=== PATIENT | male | born 1990 | race Caucasian/White ===

== ENCOUNTER 2017-03-02 22:32 | Emergency (ER) | payer MEDICAID ==
--- NOTE | 2017-03-02 22:37 | EDPHY ---
H & P HPI/ROS: HPI CHIEF COMPLAINT: Medical clearance for long term, alcohol intoxication HISTORY OF PRESENT ILLNESS: The patient is a 26-year-old male, unknown medical history unknown surgical history he presents emergency room by EMS. [place]. Highly intoxicated alcohol. Denies unsteady gait. Brought to the emergency room because he would not speak to the police or EMS. However he did speak in short sentences to EMS in route and was slurring his speech. Admits to large amount of alcohol this evening. EMS reports heart rates in the 120s. Of note the police would like to take this patient to long term as he has a warrant for his arrest. Upon arrival to the emergency room the patient will not speak to me does not answer any of my questions. Past Medical History: Unknown medical history Past Surgical History: Unknown surgical history Social History: Alcohol this evening, unknown drug use Family History: Unknown ROS REVIEW OF SYSTEMS: Review of systems and history limited due to patient's cooperation and alcohol intoxication Exam Constitutional intoxicated with alcohol, smells of alcohol, triage nursing summary reviewed, vital signs reviewed, awake/alert. Eyes normal conjunctivae and sclera, EOMI, PERRLA. HENT normal inspection, atraumatic, moist mucus membranes, no epistaxis, neck supple/ no meningismus, no raccoon eyes. Respiratory clear to auscultation bilaterally, normal breath sounds, no respiratory distress, no wheezing. Cardiovascular rate normal, regular rhythm, no murmur, no edema, distal pulses normal. Gastrointestinal soft, non-tender, no rebound, no guarding, normal bowel sounds, no distension, no pulsatile mass. Genitourinary no CVA tenderness. Musculoskeletal no midline vertebral tenderness, full range of motion, no calf swelling, no tenderness of extremities, no meningismus, good pulses, neurovascularly intact. Skin pink, warm, & dry, no rash, skin atraumatic. Neurologic awake, alert and oriented x 3, AAOx3, moves all 4 extremities equally, motor intact, sensory intact, CN II-XII intact, normal cerebellar, normal vision, nonverbal Psychiatric normal mood/affect. Heme/Lymph/Immune no lymphadenopathy. 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 Check vital signs. Breath alcohol. Re-evaluation: 2246: Patient was revived heart rate in the 90s. Normotensive. Not hypothermic. Patient refusing to talk to me. He is in handcuffs please at bedside. He is ambulatory. There is no signs of trauma on exam. Of note patient is now answering questions with police. However he is refusing to talk to me. He otherwise appears well. Smells of alcohol. He is stable gait. He can be released to police a medically cleared for long term. He is not excessively sleepy. Sitting up in a chair with good eye tracking. However does not answer any of my questions. Source: Patient, Police, EMS - Medical/Surgical History Hx Asthma: No Hx Chronic Respiratory Disease: No Hx Diabetes: No Hx Cardiac Disease: No Hx Renal Disease: No Hx Cirrhosis: No Other PMH: Pt refuses to give any information - Social History Smoking Status: Current some day smoker Allergies/Adverse Reactions: Unable to Assess Allergy (Unverified 04/17/16 19:58) Home Medications: Medication Instructions Recorded Unobtainable 04/17/16 Departure - Departure Disposition: Home, Routine, Self-Care Clinical Impression: Alcoholic intoxication Qualifiers: Complication of substance-induced condition: uncomplicated Qualified Code(s): F10.920 - Alcohol use, unspecified with intoxication, uncomplicated Condition: Good Instructions: Alcohol Intoxication (ED) Additional Instructions: 1.Medically cleared for long term. Referrals: Patient,NotPresent [Primary Care Provider] - As per Instructions
[2017-03-02 22:52] VITALS: BP 152/94; RESP 18; TEMP 97.5; O2SAT 96
[2017-03-02 23:00] VITALS: PULSE 93
== END 2017-03-02 23:04 | disposition home or self-care (01) ==
LOC: EDUNIT# → EEVIPCON 22:32
DX: F10.920 Alcohol use, unspecified with intoxication, uncomplicated (principal); F17.200 Nicotine dependence, unspecified, uncomplicated

== ENCOUNTER 2018-04-24 23:40 | Emergency (ER) | payer SELFPAY ==
[2018-04-24] MEDS ORDERED: NS 1,000 ML IV ONE (23:43)
--- NOTE | 2018-04-24 23:46 | EDPHY ---
H & P Time Seen by Provider: 04/24/18 23:44 HPI/ROS: HPI CHIEF COMPLAINT: Alcohol Intoxication HISTORY OF PRESENT ILLNESS: 27-year-old male arrives by EMS for acute alcohol intoxication. He was going to go to the [facility], however was too intoxicated and his heart rate was noted to be in the 115-120 range. Patient denies any complaints. He is here intoxicated alcohol slurring his speech. States he drank a lot of alcohol earlier this evening. He did vomit 1 time prior to arrival. Past Medical History: Denies medical history Past Surgical History: Denies surgical history Social History: Alcohol this evening. Reports multiple still reserves. Tequila. Denies drugs. Family History: Noncontributory. ROS REVIEW OF SYSTEMS: 10 Systems were reviewed and negative with the exception of the elements mentioned in the history of present illness. Exam Constitutional Intoxicated, triage nursing summary reviewed, vital signs reviewed, Sleepy, smells of alcohol Eyes normal conjunctivae and sclera, horizontal beating nystagmus consistent acute alcohol intoxication, otherwise pupils equal and react to light HENT normal inspection, atraumatic, moist mucus membranes, no epistaxis, neck supple/ no meningismus, no raccoon eyes. Respiratory clear to auscultation bilaterally, normal breath sounds, no respiratory distress, no wheezing. Cardiovascular rate normal, regular rhythm, no murmur, no edema, distal pulses normal. Gastrointestinal soft, non-tender, no rebound, no guarding, normal bowel sounds, no distension, no pulsatile mass. Genitourinary no CVA tenderness. Musculoskeletal no midline vertebral tenderness, full range of motion, no calf swelling, no tenderness of extremities, no meningismus, good pulses, neurovascularly intact. Skin pink, warm, & dry, no rash, skin atraumatic. Neurologic sleepy, intoxicated with alcohol,, alert and oriented x 3, AAOx3, moves all 4 extremities equally, motor intact, sensory intact, CN II-XII intact , , normal vision, normal speech. Psychiatric normal mood/affect. Heme/Lymph/Immune no lymphadenopathy. Differential Diagnosis: Includes but is not limited to in a particular order acute alcohol intoxication, alcohol abuse, dehydration, electrolyte abnormality , nausea vomiting from acute alcohol intoxication Medical Decision Making: Plan for this patient IV establishment IV fluid bolus , Zofran as needed for nausea vomiting, serum alcohol level, electrolytes. Monitor for sobriety monitor for worsening condition monitor for sedation. Re-evaluation: Serum alcohol level 59. Patient vomited once at 12:30 a.m.. IV fluid given and 4 mg IV Zofran given. 0304: Patient up ambulatory to the bathroom. No vomiting. Feeling better. Received IV fluids and Zofran. No complaints. Clinically sober and safe for discharge. Source: Patient, EMS - Medical/Surgical History Hx Asthma: No Hx Chronic Respiratory Disease: No Hx Diabetes: No Hx Cardiac Disease: No Hx Renal Disease: No Hx Cirrhosis: No Other PMH: Pt refuses to give any information - Social History Smoking Status: Current some day smoker Constitutional: Initial Vital Signs Temperature (C) 36.7 C 04/24/18 23:50 Heart Rate 114 H 04/24/18 23:50 Respiratory Rate 18 04/24/18 23:50 Blood Pressure 148/104 H 04/24/18 23:50 O2 Sat (%) 95 04/24/18 23:50 O2 Delivery Mode Room Air Allergies/Adverse Reactions: No Known Allergies Allergy (Unverified 04/25/18 00:00) Home Medications: Medication Instructions Recorded NK [No Known Home Meds] 03/02/17 Medical Decision Making - Data Points Laboratory Results: Laboratory Results 04/24/18 23:54 04/24/18 23:54 04/24/18 04/24/18 23:54 23:54 WBC 8.67 10^3/uL 10^3/uL (3.80-9.50) RBC 4.74 10^6/uL 10^6/uL (4.40-6.38) Hgb 14.4 g/dL g/dL (13.7-17.5) Hct 42.0 % % (40.0-51.0) MCV 88.6 fL fL (81.5-99.8) MCH 30.4 pg pg (27.9-34.1) MCHC 34.3 g/dL g/dL (32.4-36.7) RDW 13.1 % % (11.5-15.2) Plt Count 220 10^3/uL 10^3/uL (150-400) MPV 10.1 fL fL (8.7-11.7) Neut % (Auto) 73.7 % % (39.3-74.2) Lymph % (Auto) 18.5 % % (15.0-45.0) Gregg % (Auto) 6.8 % % (4.5-13.0) Eos % (Auto) 0.0 % L % (0.6-7.6) Baso % (Auto) 0.8 % % (0.3-1.7) Nucleat RBC Rel Count 0.0 % % (0.0-0.2) Absolute Neuts (auto) 6.39 10^3/uL 10^3/uL (1.70-6.50) Absolute Lymphs (auto) 1.60 10^3/uL 10^3/uL (1.00-3.00) Absolute Monos (auto) 0.59 10^3/uL 10^3/uL (0.30-0.80) Absolute Eos (auto) 0.00 10^3/uL L 10^3/uL (0.03-0.40) Absolute Basos (auto) 0.07 10^3/uL 10^3/uL (0.02-0.10) Absolute Nucleated RBC 0.00 10^3/uL 10^3/uL (0-0.01) Immature Gran % 0.2 % % (0.0-1.1) Immature Gran # 0.02 10^3/uL 10^3/uL (0.00-0.10) Sodium 141 mEq/L mEq/L (135-145) Potassium 3.8 mEq/L mEq/L (3.3-5.0) Chloride 103 mEq/L mEq/L (97-110) Carbon Dioxide 25 mEq/l mEq/l (22-31) Anion Gap 13 mEq/L mEq/L (6-14) BUN 17 mg/dL mg/dL (7-23) Creatinine 0.8 mg/dL mg/dL (0.7-1.3) Estimated GFR > 60 Glucose 131 mg/dL H mg/dL (70-100) Calcium 8.4 mg/dL L mg/dL (8.5-10.4) Ethyl Alcohol 59 mg/dL H mg/dL (0-10) Medications Given: Discontinued Medications Sodium Chloride (Ns) 1,000 mls @ 0 mls/hr IV EDNOW ONE; Wide Open PRN Reason: Protocol Stop: 04/24/18 23:44 Last Admin: 04/25/18 00:01 Dose: 1,000 mls Ondansetron HCl (Zofran) 4 mg IVP EDNOW ONE Stop: 04/25/18 00:01 Last Admin: 04/25/18 00:01 Dose: 4 mg Departure - Departure Disposition: Home, Routine, Self-Care Clinical Impression: Alcohol intoxication Qualifiers: Complication of substance-induced condition: uncomplicated Qualified Code(s): F10.920 - Alcohol use, unspecified with intoxication, uncomplicated Condition: Good Instructions: Alcohol Intoxication (ED), Abuse of Alcohol (ED) Referrals: Patient,NotPresent [Unknown] - As per Instructions
[2018-04-24] MEDS ORDERED: ONDANSETRON 4 MG/2 ML VIAL ONE (23:59)
[2018-04-25] MEDS ORDERED: ONDANSETRON 4 MG/2 ML VIAL IVP ONE
[2018-04-25 00:12] LABS: PLATELET COUNT 220 10^3/uL (150-400)
[2018-04-25] MEDS ORDERED: CHLORDIAZEPOXIDE 25MG PREPK#6 BTL TAKEHOME ONE (03:07)
[2018-04-25 03:46] VITALS: BP 145/80
== END 2018-04-25 03:43 | disposition home or self-care (01) ==
LOC: EDUNIT#
DX: F10.920 Alcohol use, unspecified with intoxication, uncomplicated (principal)
CPT/HCPCS: 96374; G0480; J2405

== ENCOUNTER 2018-11-05 10:07 | Emergency (ER) | payer OTHER, MEDICAID | END 2018-11-05 10:43 | disposition home or self-care (01) ==